=== PATIENT | male | born 1985 | race Caucasian/White ===

== ENCOUNTER 2018-02-10 18:15 | Emergency (ER) | payer BC ==
[~2018-02-10] VITALS: Ht 172.7 cm; Wt 136.1 kg
[2018-02-10 18:30] VITALS: BP 147/87
[2018-02-10 19:13] LABS: BASOPHIL % 0.1 % (0.0-0.2); EOSINOPHIL # 0.3 10^3/uL (0.0-0.2); EOSINOPHIL % 1.9 % (0.0-5.0); HEMOGLOBIN 15.8 g/dL (13.9-16.3); LYMPHOCYTES # 3.6 10^3/uL (1.0-4.8); MEAN CELL HGB 28.5 pg (26-34); MEAN CELL HGB CONCENTRATION 32.8 g/dL (33-37); MEAN CORP VOLUME 86.7 fL (78-100); MEAN PLATELET VOLUME 10.3 fL (7.8-11.0); MONOCYTES # 1.2 10^3/uL (0.3-0.8); MONOCYTES % 8.1 % (5.0-12.0); NEUTROPHIL # 9.2 10^3/uL (1.8-7.7); NEUTROPHILS % 64.6 % (41.0-85.0); RED CELL DISTRIBUTION WIDTH 13.5 % (11.5-14.5); WHITE BLOOD CELL 14.3 10^3/uL (4.5-11.0)
--- NOTE | 2018-02-10 19:16 | ER.PDOC ---
General Chief Complaint: General Complaint Stated Complaint: FACIAL NUMBNESS Time seen by MD: 19:12 Source: patient Exam Limitations: no limitations History of Present Illness Initial Comments Left facial numbness for 2 days. Severity: moderate New Weakness: (L) facial Usually: orientedx3 Allergies: Coded Allergies: No Known Allergies (Unverified , 02/10/18) Home Meds No Active Prescriptions or Reported Meds Past Medical History Medical History: no pertinent history Surgical History: no surgical history Social History Smoking: chew Alcohol Use: heavy Drug Use: none Review of Systems Constitutional: no symptoms reported Respiratory: no symptoms reported Cardiovascular: no symptoms reported Gastrointestinal: no symptoms reported Genitourinary: no symptoms reported Psychiatric/Neurological: see HPI All Other Systems: Reviewed and Negative Physical Exam General Appearance: alert, no distress HEENT: no apparent trauma, EOM's intact, no nystagmus, PERRL, ENT inspection nml, pharynx nml, airway intact, oral exam nml Neuro/Psych: oriented x3, nml speech/cognition, nml mood/affect Cranial Nerves: facial palsy (left), forehead involved Peripheral Exam: motor nml, sensation nml, reflexes nml Neck: supple, non-tender, no carotid bruit Respiratory: no resp distress, breath sounds nml CVS: reg rate & rhythm, heart sounds nml Abdomen: non-tender, no organomegaly, no distention Skin: color nml, no rash, warm/dry Extremities: non-tender, nml ROM, no pedal edema Results/Orders Results/Orders Laboratory Tests Test 02/10/18 19:03 White Blood Count 14.3 10^3/uL (4.5-11.0) Red Blood Count 5.55 10^6/uL (4.50-5.90) Hemoglobin 15.8 g/dL (13.9-16.3) Hematocrit 48.1 % (37.0-53.0) Mean Corpuscular Volume 86.7 fL (78-100) Mean Corpuscular Hemoglobin 28.5 pg (26-34) Mean Corpuscular Hemoglobin Concent 32.8 g/dL (33-37) Red Cell Distribution Width 13.5 % (11.5-14.5) Platelet Count 287 10^3/uL (150-400) Mean Platelet Volume 10.3 fL (7.8-11.0) Neutrophils (%) (Auto) 64.6 % (41.0-85.0) Lymphocytes (%) (Auto) 25.0 % (24.0-44.0) Monocytes (%) (Auto) 8.1 % (5.0-12.0) Neutrophils # (Auto) 9.2 10^3/uL (1.8-7.7) Lymphocytes # (Auto) 3.6 10^3/uL (1.0-4.8) Monocytes # (Auto) 1.2 10^3/uL (0.3-0.8) Absolute Immature Granulocyte (auto 0.04 10^3 u/L (0-2) Eosinophils % 1.9 % (0.0-5.0) Basophils % 0.1 % (0.0-0.2) Basophils # 0.0 10^3/uL (0.0-0.1) Eosinophil Count 0.3 10^3/uL (0.0-0.2) Sodium Level 140 mmol/L (132-145) Potassium Level 4.4 mmol/L (3.6-5.2) Chloride Level 104.0 mmol/L (96-109) Carbon Dioxide Level 26.7 mmol/L (20.0-32) Anion Gap 13.7 Blood Urea Nitrogen 13 mg/dL (7-18) Creatinine 1.10 mg/dL (0.59-1.40) Estimated GFR () 93.9 (>/=60) BUN/Creatinine Ratio 11.0 Glucose Level 91 mg/dL (70-110) Calcium Level 9.4 mg/dL (8.4-10.5) Total Bilirubin 0.4 mg/dL (0.2-1.0) Aspartate Amino Transf (AST/SGOT) 24 U/L (0-35) Alanine Aminotransferase (ALT/SGPT) 33 U/L (12-78) Alkaline Phosphatase 96 U/L (50-136) Total Protein 8.5 g/dL (6.4-8.2) Albumin 4.2 g/dL (3.4-5.0) Globulin 4.3 Percent Immature Gran (Cell Imm) 0.30 % (0.00-0.50) EKG/XRAY/CT/US CT Comments: No acute intracranial abnormality Departure Time of Disposition: 20:03 Disposition: 01 HOME, SELF-CARE Impression: Primary Impression: Molina's palsy Condition: Stable Referrals: PCP,UNKNOWN (PCP) PRIMARY CARE PROVIDER Additional Instructions: Prednisone Acyclovir F/U with you PCP and Neurologist this week Scripts No Active Prescriptions or Reported Meds Duration or Time Spent with Pa: 60 mins REG,YULIET Cruz MD Feb 10, 2018 19:16
--- NOTE | 2018-02-10 19:17 | DIREP ---
PROCEDURE:CT HEAD OR BRAIN W/O CONTRAST COMPARISON:None. INDICATIONS:Left facial palsy TECHNIQUE:Axial CT images were obtained from vertex to the skull base without the administration of IV contrast. FINDINGS: VENTRICLES: The ventricles are normal in size and configuration. No hydrocephalus. CEREBRUM: Normal cerebral morphology with appropriate luo white matter differentiation. No intracranial hemorrhage, mass-effect, or midline shift. No CT evidence of acute infarction. CEREBELLUM: Normal. BRAINSTEM: Normal. BASAL CISTERNS: Normal. SKULL: Normal. No fracture. SINUSES: Normal. Visualized paranasal sinuses and mastoid air cells are clear. OTHER: None CONCLUSION: No acute intracranial abnormality. Dictated by: Manfred Webb MD on 02/10/2018 at 07:14 PM
[2018-02-10 19:29] LABS: CALCIUM 9.4 mg/dL (8.4-10.5); CARBON DIOXIDE 26.7 mmol/L (20.0-32)
[2018-02-10 19:30] VITALS: BP 139/78
[2018-02-10] MEDS ORDERED: TORADOL ONE (20:10)
[2018-02-10 20:30] VITALS: BP 125/79
[2018-02-10 20:47] VITALS: BP 125/79
== END 2018-02-10 20:42 | disposition home or self-care (01) ==
LOC: ER 18:15
DX: G51.0 Bell's palsy (principal); F17.220 Nicotine dependence, chewing tobacco, uncomplicated
CPT/HCPCS: 36415; 70450; 80053; 85025; 99285; J1885